=== PATIENT | male | born 1935 | race Caucasian/White ===

== ENCOUNTER 2016-04-24 09:25 | Outpatient (CLI) | payer MEDICARE, OTHER | END 2016-04-24 09:26 | disposition home or self-care (01) | DX: I13.0 Hypertensive heart and chronic kidney disease with heart failure and stage 1 through stage 4 chronic kidney disease, or unspecified chronic kidney disease (principal); I50.9 Heart failure, unspecified; N18.9 Chronic kidney disease, unspecified; E11.22 Type 2 diabetes mellitus with diabetic chronic kidney disease; E78.5 Hyperlipidemia, unspecified; Z79.899 Other long term (current) drug therapy; I25.10 Atherosclerotic heart disease of native coronary artery without angina pectoris ==

== ENCOUNTER 2016-09-15 12:15 | Outpatient (CLI) | payer MEDICARE, OTHER ==
--- NOTE | 2016-09-16 09:01 | XRAY Report ---
RIGHT FOOT, THREE VIEWS: 09/15/2016 CLINICAL HISTORY: Right mid foot pain lateral. FINDINGS: Prominent accessory ossicle is noted adjacent to the medial aspect of the tarsonavicular b one. Minimal bunion deformity is seen at the right first MT joint. Minimal narrowing of the proxima l and distal interphalangeal joints is seen. Bipartite accessory ossicle is noted adjacent to the la teral aspect of the cuboid bone. Moderate-sized posterior calcaneal spur with a small plantar calcaneal spur. IMPRESSION: 1. PROMINENT ACCESSORY OSSICLE IS NOTED ADJACENT TO THE MEDIAL ASPECT OF THE TARSONAVICULAR BONE. T HIS IS A NORMAL VARIATION. 2. BIPARTITE ACCESSORY OSSICLES ARE SEEN ADJACENT TO THE LATERAL ASPECT OF THE CUBOID BONE. THIS IS A NORMAL VARIATION. 3. MILD BUNION DEFORMITY OF THE RIGHT FIRST MT JOINT WITH ASSOCIATED MINIMAL OSTEOARTHRITIS. 4. MINIMAL OSTEOARTHRITIS IS SEEN IN THE PROXIMAL AND DISTAL INTERPHALANGEAL JOINTS OF THE SECOND TH ROUGH FIFTH TOES. 5. MODERATE-SIZED POSTERIOR CALCANEAL SPUR IS SEEN WITH A SMALL PLANTAR CALCANEAL SPUR. JOB #: [id number] EXT JOB #:[id number]
== END 2016-09-15 12:16 | disposition home or self-care (01) ==
LOC: DI 12:15
PROVIDERS: ATTEND Nurse Practitioner Primary Care
DX: M19.071 Primary osteoarthritis, right ankle and foot (principal); M21.611 Bunion of right foot; M77.31 Calcaneal spur, right foot

== ENCOUNTER 2016-10-20 08:00 | Outpatient (CLI) | payer MEDICARE, OTHER ==
[2016-10-20 20:47] LABS: HEMOGLOBIN A1C 1.05 g/dL
== END 2016-10-20 08:01 | disposition home or self-care (01) ==
LOC: LAB.R 08:00
PROVIDERS: ATTEND Nurse Practitioner Primary Care
DX: E11.9 Type 2 diabetes mellitus without complications (principal); Z79.4 Long term (current) use of insulin
CPT/HCPCS: 82947; 83036

== ENCOUNTER 2016-10-26 11:45 | Outpatient (CLI) | payer MEDICARE, OTHER | END 2016-10-26 11:46 | disposition home or self-care (01) | LOC: LAB.R 11:45 | PROVIDERS: ATTEND Internal Medicine | DX: M10.9 Gout, unspecified (principal) | CPT/HCPCS: 84550 ==

== ENCOUNTER 2017-05-05 09:25 | Outpatient (CLI) | payer MEDICARE, OTHER ==
[2017-05-05 13:08] LABS: ALBUMIN 3.7 g/dL (3.2-5.5); ALBUMIN/GLOBULIN RATIO 1.1 (1.0-2.2); ALKALINE PHOSPHATASE 72 IU/L (42-121); ALT ALANINE AMINOTRANSFERASE 34 IU/L (10-60); AST ASPARTATE AMINOTRANSFERASE 33 IU/L (10-42); BILIRUBIN,TOTAL 0.6 mg/dL (0.2-1.0); BUN - BLOOD UREA NITROGEN 55 mg/dL (6-20); CALCIUM 8.8 mg/dL (8.5-10.3); CARBON DIOXIDE - CO2 29 mmol/L (21-32); CHLORIDE 98 mmol/L (101-111); CHOL/HDL RATIO 2.5 (<5.0); CHOLESTEROL 98 mg/dL; CREATININE 2.2 mg/dL (0.6-1.2); GFR - MDRD 29 (>89); GLUCOSE 121 mg/dL (70-100); HDL CHOLESTEROL 39 mg/dL; LDL CHOLESTEROL,CALCULATED 33 mg/dL; LDL/HDL RATIO 0.8 (<3.6); SODIUM 141 mmol/L (135-145); VLDL CHOLESTEROL 26 mg/dL
[2017-05-05 13:09] LABS: BASOPHILS % (AUTO) 0.5 %; EOSINOPHILS # (AUTO) 0.3 10^3/uL (0.0-0.7); EOSINOPHILS % (AUTO) 4.5 %; HGB - HEMOGLOBIN 16.7 g/dL (14.0-18.0); LYMPHOCYTES # (AUTO) 1.8 10^3/uL (1.5-3.5); LYMPHOCYTES % (AUTO) 23.1 %; MEAN CORPUSCULAR HEMOGLOBIN 31.1 pg (27.0-31.0); MEAN CORPUSCULAR HGB CONC 33.5 g/dL (32.0-36.0); MEAN CORPUSCULAR VOLUME 92.8 fL (80.0-94.0); MEAN PLATELET VOLUME 10.9 fL (7.4-11.4); MONOCYTES # (AUTO) 1.1 10^3/uL (0.0-1.0); MONOCYTES % (AUTO) 13.9 %; NEUTROPHILS # (AUTO) 4.5 10^3/uL (1.5-6.6); PLT - PLATELET COUNT 113 10^3/uL (130-450); RED BLOOD COUNT 5.37 10^6/uL (4.70-6.10); RED CELL DISTRIBUTION WIDTH 13.9 % (12.0-15.0); WHITE BLOOD COUNT 7.8 x10^3/uL (4.8-10.8)
[2017-05-05 13:49] LABS: HB2 TOTAL 18.5 g/dL; HEMOGLOBIN A1C 1.11 g/dL; HEMOGLOBIN A1C % 7.6 % (4.6-6.2)
== END 2017-05-05 09:26 | disposition home or self-care (01) ==
LOC: LAB.R 09:25
PROVIDERS: ATTEND Nurse Practitioner Primary Care
DX: E11.22 Type 2 diabetes mellitus with diabetic chronic kidney disease (principal); I12.9 Hypertensive chronic kidney disease with stage 1 through stage 4 chronic kidney disease, or unspecified chronic kidney disease; N18.3 Chronic kidney disease, stage 3 (moderate); E03.9 Hypothyroidism, unspecified; J44.9 Chronic obstructive pulmonary disease, unspecified; E78.5 Hyperlipidemia, unspecified; I50.9 Heart failure, unspecified
CPT/HCPCS: 80053; 80061; 83036; 83721; 83880; 84443; 85025

== ENCOUNTER 2017-05-28 10:33 | Outpatient (CLI) | payer MEDICARE, OTHER ==
[2017-05-28 15:10] LABS: CREATININE 2.3 mg/dL (0.6-1.2)
== END 2017-05-28 10:34 | disposition home or self-care (01) ==
LOC: LAB.R 10:33
PROVIDERS: ATTEND Nurse Practitioner Primary Care
DX: I50.9 Heart failure, unspecified (principal); N18.4 Chronic kidney disease, stage 4 (severe); Z51.81 Encounter for therapeutic drug level monitoring; Z79.899 Other long term (current) drug therapy
CPT/HCPCS: 82565; 83880; 84520

== ENCOUNTER 2017-07-03 15:34 | Emergency (ER) | payer MEDICARE, OTHER ==
[2017-07-03 15:52] VITALS: BP 112/80
--- NOTE | 2017-07-03 16:39 | ED Physician Documentation ---
PD HPI HEENT - Stated complaint Stated Complaint: THROAT POSS OBJECT - Chief complaint Chief Complaint: Heent - History obtained from History obtained from: Patient - History of Present Illness Timing - onset: Other (He was swallowing his pills earlier today and feels like something is stuck, he points in the area of the left vallecula. He also ate some popcorn at the time.) Review of Systems Constitutional: reports: Reviewed and negative Nose: reports: Reviewed and negative Cardiac: reports: Reviewed and negative Respiratory: reports: Reviewed and negative PD PAST MEDICAL HISTORY - Past Medical History Past Medical History: Yes Cardiovascular: Congestive heart failure, Coronary artery disease, CT Respiratory: Asthma, COPD Neuro: Head injury Endocrine/Autoimmune: Type 2 diabetes GI: None : Renal insuffiency, Nocturia, Frequency HEENT: Chronic hearing loss, Other Psych: None Musculoskeletal: Osteoarthritis, Chronic back pain Derm: None - Past Surgical History Past Surgical History: Yes General: Colonoscopy Ortho: Other Cardiovascular: Coronary stent, Other HEENT: Cataracts Derm: Skin cancer surgery - Present Medications Home Medications: Ambulatory Orders Medication Instructions Recorded Confirmed Albuterol Sulfate [Albuterol 1 inh PO Q4HR PRN 07/16/14 07/22/15 Sulfate Hfa] Clopidogrel Bisulfate [Plavix] 75 mg PO DAILY 07/16/14 07/22/15 Levothyroxine [Synthroid] 25 mcg PO DAILY 07/16/14 07/22/15 Multivit with Calcium,Iron,Min 1 mg PO DAILY 07/16/14 07/22/15 [Essential Daily] Aspirin [Aspir-Low] 81 mg PO DAILY 06/24/15 07/22/15 Fluticasone/Salmeterol [Advair 1 puffs INH BID 06/24/15 07/22/15 250-50 Diskus] Simvastatin 20 mg PO QPM 06/24/15 07/22/15 Acetaminophen [Arthritis Pain 650 mg PO Q8HR PRN 06/25/15 06/25/15 Relief] Carvedilol [Coreg] 12.5 mg PO BID 06/25/15 07/22/15 Insulin Glargine [Lantus Solostar] 12 units SQ QPM 06/25/15 07/22/15 Isosorbide Dinitrate 10 mg PO TID 06/25/15 07/22/15 Potassium Chloride 40 meq PO DAILY 06/25/15 07/22/15 Spironolactone 25 mg PO DAILY 06/25/15 07/22/15 Torsemide [Demadex] 80 mg PO DAILY 06/25/15 07/22/15 hydrALAZINE [Apresoline] 10 mg PO TID 06/25/15 07/22/15 metOLazone [Metolazone] 2.5 mg PO ONCE 06/25/15 07/22/15 Potassium Chloride 20 meq ORAL QPM 07/22/15 07/22/15 Sevelamer [Renagel] 1,600 mg ORAL TID 07/22/15 07/22/15 Zolpidem [Ambien] 5 mg ORAL QPM 07/22/15 07/22/15 - Allergies Allergies/Adverse Reactions: Allergies Allergy/AdvReac Type Severity Reaction Status Date / Time Penicillins AdvReac Hives Verified 07/03/17 15:52 - Social History Does the pt smoke?: No Smoking Status: Never smoker Does the pt drink ETOH?: No Does the pt have substance abuse?: No - Immunizations Immunizations are current?: Yes - POLST Patient has POLST: Yes PD ED PE NORMAL - Vitals Vital signs reviewed: Yes - General General: Alert and oriented X 3, No acute distress - HEENT HEENT: Pharynx benign - Neck Neck: Supple, no meningeal sign, No bony TTP - Neuro Neuro: Alert and oriented X 3, Normal speech - Psych Psych: Normal mood, Normal affect Results - Vitals Vitals: Vital Signs - 24 hr 07/03/17 15:48 Temperature 35.9 C L Heart Rate 77 Respiratory 18 Rate Blood Pressure 112/80 O2 Saturation 93 Oxygen O2 Source Room air PD MEDICAL DECISION MAKING - ED course ED course: He has symptoms of a retained foreign body potentially in the left vallecula and no physical signing signs, he is tolerating his secretions and swallowing okay and there is no shortness of breath. I spoke with Dr. Robert Wilson, ENT in [place] who will see him on Wednesday if he is having persistent symptoms. Departure - Departure Disposition: Home, Self Care Clinical Impression: Foreign body in throat Qualifiers: Encounter type: initial encounter Qualified Code(s): T17.208A - Unspecified foreign body in pharynx causing other injury, initial encounter Condition: Good Record reviewed to determine appropriate education?: Yes Comments: If you are having persistent symptoms Wednesday morning, call Dr. Robert Wilson, I spoke with him today. He will be in [place], call [phone]. Do not eat or drink that morning if you are still having symptoms before you go see him.
== END 2017-07-03 16:58 | disposition home or self-care (01) ==
LOC: ED 15:34
DX: T17.208A Unspecified foreign body in pharynx causing other injury, initial encounter (principal); X58.XXXA Exposure to other specified factors, initial encounter; I50.9 Heart failure, unspecified; I25.10 Atherosclerotic heart disease of native coronary artery without angina pectoris; I25.2 Old myocardial infarction; J44.9 Chronic obstructive pulmonary disease, unspecified; E11.9 Type 2 diabetes mellitus without complications; Z79.4 Long term (current) use of insulin; M19.90 Unspecified osteoarthritis, unspecified site; Z79.82 Long term (current) use of aspirin
CPT/HCPCS: 99282

== ENCOUNTER 2017-08-31 11:38 | Outpatient (CLI) | payer MEDICARE, OTHER ==
--- NOTE | 2017-08-31 13:04 | XRAY Report ---
CHEST, TWO VIEWS: 08/31/2017 HISTORY: Short of breath. COMPARISON: 10/11/2016. FINDINGS: Cardiomegaly with pulmonary vascular redistribution and congestion. Small left greater than right effusions. Nonspecific increase in interstitial markings throughout both lungs, similar to previous. There is degenerative change in the spine. IMPRESSION: CARDIOMEGALY, LEFT GREATER THAN RIGHT EFFUSIONS AND PULMONARY VASCULAR CONGESTION, SIMILAR TO PREVIOUS. FINDINGS SUGGEST FLUID OVERLOAD/CONGESTIVE FAILURE. FINDINGS MAY BE ACUTE OR CHRONIC. TD: 08/31/2017 12:26
== END 2017-08-31 11:39 | disposition home or self-care (01) ==
LOC: DI 11:38
PROVIDERS: ATTEND Nurse Practitioner Primary Care
DX: I50.9 Heart failure, unspecified (principal); I51.7 Cardiomegaly; J44.9 Chronic obstructive pulmonary disease, unspecified
CPT/HCPCS: 71046

== ENCOUNTER 2017-10-17 23:56 | Emergency (ER) | payer MEDICARE, OTHER ==
--- NOTE | 2017-10-18 00:10 | ED Physician Documentation ---
History of Present Illness - Stated complaint Stated Complaint: RT FOOT GOUT ATTACK - Chief complaint Chief Complaint: General - History obtained from History obtained from: Patient, Family - Additonal information Additional information: 82-year-old male presents to the emergency department with complaints of right great toe pain which started earlier. The patient has a history of recurrent gout and today's pain is similar to prior episodes. The patient took 1 baby aspirin with no significant improvement. No other attempts at symptom management. The patient denies toe swelling, redness, foot swelling or leg swelling. Symptoms are described as moderate. The patient has a history of pulmonary related issues and was told that he needed oxygen but is refused to go on oxygen. Currently, the patient is denying any shortness of breath that is new or different. No fevers, URI symptoms, chest pain or abdominal pain. Review of Systems Constitutional: denies: Fever, Chills Eyes: denies: Discharge Ears: denies: Ear pain Nose: denies: Congestion Cardiac: denies: Chest pain / pressure Respiratory: denies: Dyspnea Skin: denies: Rash, Laceration (s) Musculoskeletal: reports: Joint pain. denies: Neck pain Neurologic: denies: Generalized weakness, Headache PD PAST MEDICAL HISTORY - Past Medical History Cardiovascular: Congestive heart failure, Coronary artery disease, [place] Respiratory: Asthma, COPD Endocrine/Autoimmune: Type 2 diabetes GI: None : Renal insuffiency, Nocturia, Frequency HEENT: Chronic hearing loss, Other Psych: None Musculoskeletal: Osteoarthritis, Chronic back pain Derm: None - Past Surgical History Past Surgical History: Yes General: Colonoscopy Ortho: Other Cardiovascular: Coronary stent, Other HEENT: Cataracts Derm: Skin cancer surgery - Present Medications Home Medications: Ambulatory Orders Medication Instructions Recorded Confirmed Albuterol Sulfate [Albuterol 1 inh PO Q4HR PRN 07/16/14 07/22/15 Sulfate Hfa] Clopidogrel Bisulfate [Plavix] 75 mg PO DAILY 07/16/14 07/22/15 Levothyroxine [Synthroid] 25 mcg PO DAILY 07/16/14 07/22/15 Multivit with Calcium,Iron,Min 1 mg PO DAILY 07/16/14 07/22/15 [Essential Daily] Aspirin [Aspir-Low] 81 mg PO DAILY 06/24/15 07/22/15 Fluticasone/Salmeterol [Advair 1 puffs INH BID 06/24/15 07/22/15 250-50 Diskus] Simvastatin 20 mg PO QPM 06/24/15 07/22/15 Acetaminophen [Arthritis Pain 650 mg PO Q8HR PRN 06/25/15 06/25/15 Relief] Carvedilol [Coreg] 12.5 mg PO BID 06/25/15 07/22/15 Insulin Glargine [Lantus Solostar] 12 units SQ QPM 06/25/15 07/22/15 Isosorbide Dinitrate 10 mg PO TID 06/25/15 07/22/15 Potassium Chloride 40 meq PO DAILY 06/25/15 07/22/15 Spironolactone 25 mg PO DAILY 06/25/15 07/22/15 Torsemide [Demadex] 80 mg PO DAILY 06/25/15 07/22/15 hydrALAZINE [Apresoline] 10 mg PO TID 06/25/15 07/22/15 metOLazone [Metolazone] 2.5 mg PO ONCE 06/25/15 07/22/15 Potassium Chloride 20 meq ORAL QPM 07/22/15 07/22/15 Sevelamer [Renagel] 1,600 mg ORAL TID 07/22/15 07/22/15 Zolpidem [Ambien] 5 mg ORAL QPM 07/22/15 07/22/15 predniSONE [Prednisone] 60 mg PO DAILY #12 tablet 10/18/17 - Allergies Allergies/Adverse Reactions: Allergies Allergy/AdvReac Type Severity Reaction Status Date / Time Penicillins AdvReac Hives Verified 10/18/17 00:00 - Social History Does the pt smoke?: No Smoking Status: Never smoker Does the pt drink ETOH?: No Does the pt have substance abuse?: No - Immunizations Immunizations are current?: Yes - POLST Patient has POLST: Yes PD ED PE NORMAL - General General: Alert and oriented X 3, No acute distress - HEENT HEENT: Atraumatic, PERRL, EOMI, Ears normal - Neck Neck: Supple, no meningeal sign - Cardiac Cardiac: RRR, Strong equal pulses - Respiratory Respiratory: No respiratory distress - Derm Derm: Normal color - Extremities Extremities: No deformity, Other (The patient has tenderness to palpation of the right great toe, there is normal range of motion, there is no erythematous changes or swelling. The patient's foot is within normal limits, there is no erythema or signs of cellulitis or swelling. The lower extremity has chronic venous stasis changes but no acute changes.) - Neuro Neuro: Alert and oriented X 3, Normal speech - Psych Psych: Normal mood Results - Vitals Vitals: Vital Signs - 24 hr 10/18/17 10/18/17 10/18/17 00:00 00:18 00:32 Temperature 36.5 C Heart Rate 79 70 Respiratory 18 18 Rate Blood Pressure 110/87 H 135/84 H O2 Saturation 88 L 96 90 L Oxygen O2 Source Nasal cannula Oxygen Flow Rate 2 PD MEDICAL DECISION MAKING - ED course ED course: The patient is requesting medications to help manage his typical gout flare. On physical exam of the foot and lower extremity there is no evidence of an acute joint infection, there is no swelling or redness of the joint. The patient is quite tender to palpation and states this is how his gout starts. The patient normally receives prednisone which helps his acute symptoms. The patient did have a low oxygen saturation upon arriving the emergency department. The patient has chronic disease and is denying any acute symptoms. The patient is supposed to be on oxygen but has not followed through. Presently there does not appear to be any acute issue related to his breathing and no further workup is required at this time in the emergency department. The patient appears appropriate for discharge and ongoing outpatient management. I discussed warning signs and recommended returning to the emergency department immediately for worsening or any concerns - Sepsis Event Vital Signs: Vital Signs - 24 hr 10/18/17 10/18/17 10/18/17 00:00 00:18 00:32 Temperature 36.5 C Heart Rate 79 70 Respiratory 18 18 Rate Blood Pressure 110/87 H 135/84 H O2 Saturation 88 L 96 90 L Oxygen O2 Source Nasal cannula Oxygen Flow Rate 2 Departure - Departure Disposition: 01 Home, Self Care Clinical Impression: Toe pain Qualifiers: Laterality: right Qualified Code(s): M79.674 - Pain in right toe(s) Condition: Good Instructions: Gout Attack Tx Follow-Up: David Lucero ARNP [Primary Care Provider] - Prescriptions: predniSONE [Prednisone] 60 mg PO DAILY #12 tablet Comments: Please return to the ED for worsening symptoms or any concerns Discharge Date/Time: 10/18/17 00:32
[2017-10-18] MEDS: ACETAMINOPHEN 500 MG TABLET PO STA (00:24)
[2017-10-18] MEDS: predniSONE 20 MG TABLET PO STA (00:24)
[2017-10-18 00:33] VITALS: BP 135/84
== END 2017-10-18 00:32 | disposition home or self-care (01) ==
LOC: ED 23:56
DX: M79.674 Pain in right toe(s) (principal); I87.8 Other specified disorders of veins; M19.90 Unspecified osteoarthritis, unspecified site; J44.9 Chronic obstructive pulmonary disease, unspecified; E11.9 Type 2 diabetes mellitus without complications; Z79.4 Long term (current) use of insulin; I25.10 Atherosclerotic heart disease of native coronary artery without angina pectoris; Z79.02 Long term (current) use of antithrombotics/antiplatelets; Z79.82 Long term (current) use of aspirin
CPT/HCPCS: 99283; A9270; J7512

== ENCOUNTER 2017-10-28 17:55 | Emergency (ER) | payer MEDICARE, OTHER ==
[2017-10-28] MEDS ORDERED: HYDROmorphone 2 MG/ML VIAL IM STA (18:18)
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
--- NOTE | 2017-10-28 19:27 | CT Report ---
Procedure Date: 10/28/2017 Accession Number: [id number] / [id number] Procedure: CT - Lumbar Spine W/O CPT Code: FULL RESULT: EXAM: CT LUMBAR SPINE WITHOUT CONTRAST EXAM DATE: 10/28/2017 06:56 PM. CLINICAL HISTORY: Back pain. COMPARISONS: X-ray L-spine 07/01/2006 9:59 AM. TECHNIQUE: Thin-section axial images were acquired of the lumbar spine from T12 to S1 without contrast. Post-processing: Coronal and sagittal reformats. Other: None. In accordance with CT protocol optimization, one or more of the following dose reduction techniques were utilized for this exam: automated exposure control, adjustment of mA and/or KV based on patient size, or use of iterative reconstructive technique. FINDINGS: Alignment: There is 7 mm of L5 on S1 anterolisthesis. Bones: Five [id number] lumbar vertebral bodies are present. Chronic fracture defect involving the posterior inferior L2 endplate. No acute fracture seen. Disk Levels/Facets: T12-L1: Unremarkable. L1-L2: Unremarkable. L2-L3: Bulging disk osteophyte complex with posterior inferior endplate chronic fracture fragment resulting in moderate central and bilateral neural foraminal canal stenosis. L3-L4: Degenerative bulging disk osteophyte complex resulting in mild bilateral neural foraminal stenosis. L4-L5: Facet joint arthropathy with L5 anterolisthesis and bulging disk osteophyte complex resulting in mild bilateral neural foraminal stenosis. L5-S1: Grade 1 L5 on S1 anterolisthesis. There are bilateral pars inter-articularis defect and facet joint arthropathy resulting in mild to moderate left greater than right bilateral neural foraminal stenosis. Musculature: Normal. No fatty atrophy. Other: Diverticulosis of the visualized colon. Atherosclerotic aorta. Bilateral renal vascular calcifications noted. Benign-appearing right renal cyst noted. IMPRESSION: 1. No acute lumbar spine fracture. 2. Chronic L2 posterior inferior endplate fracture. 3. Multilevel disk and facet joint related degenerative changes resulting in foraminal stenosis as detailed above most significant at L3-L4, L4-L5 and L5-S1. 4. L5 on S1 grade 1 anterolisthesis. RADIA
[2017-10-28] MEDS ORDERED: HYDROmorphone 2 MG/ML VIAL IVP STA (19:32)
[2017-10-28 19:38] LABS: BASOPHILS # (AUTO) 0.1 10^3/uL (0.0-0.1); BASOPHILS % (AUTO) 0.7 %; EOSINOPHILS # (AUTO) 0.3 10^3/uL (0.0-0.7); HGB - HEMOGLOBIN 17.2 g/dL (14.0-18.0); LYMPHOCYTES # (AUTO) 1.4 10^3/uL (1.5-3.5); LYMPHOCYTES % (AUTO) 15.3 %; MEAN CORPUSCULAR HEMOGLOBIN 29.5 pg (27.0-31.0); MEAN CORPUSCULAR HGB CONC 32.4 g/dL (32.0-36.0); MEAN CORPUSCULAR VOLUME 90.9 fL (80.0-94.0); MONOCYTES # (AUTO) 1.2 10^3/uL (0.0-1.0); MONOCYTES % (AUTO) 12.6 %; NEUTROPHILS # (AUTO) 6.3 10^3/uL (1.5-6.6); NEUTROPHILS % (AUTO) 68.4 %; PLT - PLATELET COUNT 119 10^3/uL (130-450); RED BLOOD COUNT 5.84 10^6/uL (4.70-6.10); RED CELL DISTRIBUTION WIDTH 15.8 % (12.0-15.0); WHITE BLOOD COUNT 9.2 x10^3/uL (4.8-10.8)
[2017-10-28 19:50] VITALS: BP 117/93
[2017-10-28 19:51] LABS: ALBUMIN 3.2 g/dL (3.2-5.5); BILIRUBIN,TOTAL 1.2 mg/dL (0.2-1.0); CALCIUM 8.5 mg/dL (8.5-10.3); CREATININE 2.3 mg/dL (0.6-1.2); TOTAL PROTEIN 6.4 g/dL (6.7-8.2)
[2017-10-28] MEDS ORDERED: HYDROcod/ACET 5/325 Prepack 4 PO STA (20:14)
== END 2017-10-28 20:19 | disposition home or self-care (01) ==
LOC: ED 17:55
DX: M54.5 Low back pain (principal); I95.2 Hypotension due to drugs; I25.10 Atherosclerotic heart disease of native coronary artery without angina pectoris; I25.2 Old myocardial infarction; E11.9 Type 2 diabetes mellitus without complications; Z95.5 Presence of coronary angioplasty implant and graft; Z79.82 Long term (current) use of aspirin
CPT/HCPCS: 36415; 72131; 80053; 83690; 85025; 96374; 99283; 99284; J1170

== ENCOUNTER 2017-11-02 08:00 | Outpatient (CLI) | payer MEDICARE, OTHER ==
[2017-11-02 11:55] LABS: BILIRUBIN,TOTAL 0.8 mg/dL (0.2-1.0); CALCIUM 8.3 mg/dL (8.5-10.3); CREATININE 1.8 mg/dL (0.6-1.2)
== END 2017-11-02 08:01 ==
LOC: LAB.R 08:00
PROVIDERS: ATTEND Nurse Practitioner Primary Care
DX: I50.9 Heart failure, unspecified (principal)
CPT/HCPCS: 80053; 83880

== ENCOUNTER 2017-11-05 10:22 | Outpatient (CLI) | payer MEDICARE, OTHER ==
[2017-11-05 10:49] LABS: HB2 TOTAL 17.3 g/dL; HEMOGLOBIN A1C 0.88 g/dL; HEMOGLOBIN A1C % 6.8 % (4.6-6.2)
[2017-11-05 10:50] LABS: CALCIUM 8.7 mg/dL (8.5-10.3); CREATININE 1.8 mg/dL (0.6-1.2)
== END 2017-11-05 10:23 | disposition home or self-care (01) ==
LOC: LAB.R 10:22
PROVIDERS: ATTEND Internal Medicine
DX: I50.9 Heart failure, unspecified (principal); E11.9 Type 2 diabetes mellitus without complications
CPT/HCPCS: 80048; 83036; 83880

== ENCOUNTER 2017-11-09 10:46 | Outpatient (CLI) | payer MEDICARE, OTHER | END 2017-11-09 10:47 | disposition home or self-care (01) | LOC: LAB.R 10:46 | PROVIDERS: ATTEND Nurse Practitioner Primary Care | DX: I50.9 Heart failure, unspecified (principal) | CPT/HCPCS: 83880 ==

== ENCOUNTER 2017-11-15 09:24 | Outpatient (CLI) | payer MEDICARE, OTHER ==
[2017-11-15] MEDS ORDERED: ALBUTEROL NEB 2.5 MG/3 ML INH PRN (13:25)
== END 2017-11-15 09:25 | disposition home or self-care (01) ==
LOC: RT 09:24
PROVIDERS: ATTEND Nurse Practitioner Primary Care
DX: J44.9 Chronic obstructive pulmonary disease, unspecified (principal)
CPT/HCPCS: 94060; 94664; 94729; 94761

== ENCOUNTER 2018-02-16 14:41 | Emergency (ER) | payer MEDICARE, OTHER ==
--- NOTE | 2018-02-16 14:53 | ED Physician Documentation ---
PD HPI FOCAL NEURO - Stated complaint Stated Complaint: DIZZY,SLURRED SPEACH - History obtained from History obtained from: Patient - History of Present Illness Timing - onset: How many minutes ago (20-30) Timing - duration: Minutes Timing - details: Gradual onset (He was feeling a little bit lightheaded this morning. He was out running errands with his daughter he was intermittently off of his oxygen and had not had lunch as yet apparently. He was sitting in the car and felt lightheaded and then felt as though he might pass out. He did not have any vertigo per se. He denied any headache or chest pain or abdominal pain. He asked his daughter to drive him here.) Severity of deficit: Moderate Weakness: Other (generally). No: Face Numbness: No: Face, Arm, Leg Associated symptoms: Other (lightheaded). No: Headache, Nausea / vomiting, Chest pain Contributing factors: positive: Other (CAD and PVD, and is on BP meds. Also history of COPD.) Baseline status: positive: A&OX3, ambulatory, indep Similar symptoms before: Has not had sx before Review of Systems Constitutional: denies: Fever, Chills, Myalgias Nose: denies: Rhinorrhea / runny nose, Congestion Throat: denies: Sore throat Cardiac: reports: Pedal edema. denies: Chest pain / pressure, Palpitations, Calf pain Respiratory: reports: Dyspnea, Wheezing. denies: Cough GI: denies: Abdominal Pain, Nausea, Vomiting, Diarrhea : denies: Dysuria Musculoskeletal: denies: Neck pain, Back pain Neurologic: reports: Generalized weakness, Near syncope. denies: Focal weakness, Numbness, Syncope, Altered mental status, Headache, Head injury Endocrine: reports: Easy bruising / bleeding PD PAST MEDICAL HISTORY - Past Medical History Cardiovascular: Congestive heart failure, Coronary artery disease, [place] Respiratory: Asthma, COPD Endocrine/Autoimmune: Type 2 diabetes GI: None : Renal insuffiency, Nocturia, Frequency HEENT: Chronic hearing loss, Other Psych: None Musculoskeletal: Osteoarthritis, Chronic back pain Derm: None - Past Surgical History Past Surgical History: Yes General: Colonoscopy Ortho: Other Cardiovascular: Coronary stent, Other HEENT: Cataracts Derm: Skin cancer surgery - Present Medications Home Medications: Ambulatory Orders Medication Instructions Recorded Confirmed Albuterol Sulfate [Albuterol 1 inh PO Q4HR PRN 07/16/14 07/22/15 Sulfate Hfa] Clopidogrel Bisulfate [Plavix] 75 mg PO DAILY 07/16/14 07/22/15 Levothyroxine [Synthroid] 25 mcg PO DAILY 07/16/14 07/22/15 Multivit with Calcium,Iron,Min 1 mg PO DAILY 07/16/14 07/22/15 [Essential Daily] Aspirin [Aspir-Low] 81 mg PO DAILY 06/24/15 07/22/15 Fluticasone/Salmeterol [Advair 1 puffs INH BID 06/24/15 07/22/15 250-50 Diskus] Acetaminophen [Arthritis Pain 650 mg PO Q8HR PRN 06/25/15 06/25/15 Relief] Carvedilol [Coreg] 12.5 mg PO BID 06/25/15 07/22/15 Insulin Glargine [Lantus Solostar] 12 units SQ QPM 06/25/15 07/22/15 Isosorbide Dinitrate 10 mg PO TID 06/25/15 07/22/15 Torsemide [Demadex] 80 mg PO DAILY 06/25/15 07/22/15 hydrALAZINE [Apresoline] 10 mg PO TID 06/25/15 07/22/15 Sevelamer [Renagel] 1,600 mg ORAL TID 07/22/15 07/22/15 Zolpidem [Ambien] 5 mg ORAL QPM 07/22/15 07/22/15 HYDROcod/ACETAM 5/325 [[place] 5/325] 1 - 2 ea PO Q6H PRN #15 tablet 10/28/17 - Allergies Allergies/Adverse Reactions: Allergies Allergy/AdvReac Type Severity Reaction Status Date / Time Penicillins AdvReac Hives Verified 10/28/17 18:06 - Social History Does the pt smoke?: No Smoking Status: Never smoker Does the pt drink ETOH?: No Does the pt have substance abuse?: No - Immunizations Immunizations are current?: Yes - POLST Patient has POLST: Yes PD ED PE NORMAL - Vitals Vital signs reviewed: Yes (Low bp at 88 systolic. Sats 85% on his 2 lpm NC. ) - General General: Alert and oriented X 3, Well developed/nourished - HEENT HEENT: Pharynx benign - Neck Neck: Supple, no meningeal sign, No adenopathy - Cardiac Cardiac: RRR, No murmur - Respiratory Respiratory: No: Clear bilaterally (diffuse wheezing without retractions. No coarse sounds. Mild fine crackles at bases. ) - Abdomen Abdomen: Soft, Non tender - Derm Derm: Warm and dry. No: Normal color (mild dusky appearance on initial presentation, improves in few minutes once here. ) - Extremities Extremities: No tenderness to palpate, Normal ROM s pain, No calf tenderness / cord, Other (mild edema only in both legs. ) - Neuro Neuro: Alert and oriented X 3, e commerce strategist 2-12 intact, No motor deficit, No sensory deficit, Normal speech Eye Opening: Spontaneous Motor: Obeys Commands Verbal: Oriented GCS Score: 15 Results - Vitals Vitals: Vital Signs - 24 hr 02/16/18 02/16/18 02/16/18 14:47 14:49 14:52 Temperature 36.5 C Heart Rate 80 80 75 Respiratory 18 Rate Blood Pressure 88/59 L 96/76 88/59 L O2 Saturation 85 L 02/16/18 02/16/18 02/16/18 15:30 15:32 15:50 Temperature Heart Rate 80 85 85 Respiratory 22 19 18 Rate Blood Pressure 124/53 L 120/56 L O2 Saturation 02/16/18 17:49 Temperature 36.5 C Heart Rate 81 Respiratory 19 Rate Blood Pressure 128/104 H O2 Saturation 94 Oxygen O2 Source Nasal cannula Oxygen Flow Rate 2 - EKG (time done) 14:56 Rate: Rate (enter#) (90) Rhythm: NSR [place]: LAD Intervals: RBBB Ischemia: Non specific changes Compare to prior EKG: Old EKG unavailable - Labs Labs: Laboratory Tests 02/16/18 02/16/18 02/16/18 15:00 15:00 15:00 WBC 7.0 RBC 5.04 Hgb 14.7 Hct 46.6 MCV 92.4 MCH 29.1 MCHC 31.5 L RDW 15.6 H Plt Count 159 MPV 10.0 Neut # (Auto) 4.6 Lymph # (Auto) 1.2 L [place] # (Auto) 0.9 Eos # (Auto) 0.3 Baso # (Auto) 0.0 Absolute Nucleated RBC 0.00 Nucleated RBC % 0.1 Sodium 142 Potassium 4.1 Chloride 97 L Carbon Dioxide 34 H Anion Gap 11.0 BUN 37 H Creatinine 1.9 H Estimated GFR (MDRD) 34 L Glucose 146 H Lactic Acid Calcium 8.6 Magnesium 2.5 Total Bilirubin 1.1 H AST 39 ALT 22 Alkaline Phosphatase 119 Troponin I 0.04 B-Natriuretic Peptide Total Protein 6.6 L Albumin 3.5 Globulin 3.1 Albumin/Globulin Ratio 1.1 Lipase 37 Urine Color Urine Clarity Urine pH Ur Specific [place] Urine Protein Urine Glucose (UA) Urine Ketones Urine Occult Blood Urine Nitrite Urine Bilirubin Urine Urobilinogen Ur Leukocyte Esterase Urine RBC Urine WBC Ur Squamous Epith Cells Urine Bacteria Urine Casts Ur Microscopic Review Urine Culture Comments 02/16/18 02/16/18 02/16/18 15:00 15:45 17:11 WBC RBC Hgb Hct MCV MCH MCHC RDW Plt Count MPV Neut # (Auto) Lymph # (Auto) [place] # (Auto) Eos # (Auto) Baso # (Auto) Absolute Nucleated RBC Nucleated RBC % Sodium Potassium Chloride Carbon Dioxide Anion Gap BUN Creatinine Estimated GFR (MDRD) Glucose Lactic Acid 1.4 Calcium Magnesium Total Bilirubin AST ALT Alkaline Phosphatase Troponin I B-Natriuretic Peptide 927 H Total Protein Albumin Globulin Albumin/Globulin Ratio Lipase Urine Color YELLOW Urine Clarity CLEAR Urine pH 6.0 Ur Specific [place] 1.025 Urine Protein >=300 Urine Glucose (UA) NEGATIVE Urine Ketones NEGATIVE Urine Occult Blood NEGATIVE Urine Nitrite NEGATIVE Urine Bilirubin NEGATIVE Urine Urobilinogen 0.2 (NORMAL) Ur Leukocyte Esterase NEGATIVE Urine RBC 0-5 Urine WBC 0-3 Ur Squamous Epith Cells RARE Squamous Urine Bacteria None Seen Urine Casts 11-25 Hyaline Casts Ur Microscopic Review INDICATED Urine Culture Comments NOT INDICATED - Rads (name of study) chest xray Radiology: Prelim report reviewed (interstitial congestion c/w CHF. No infiltrates. ), EMP read contemporaneously PD MEDICAL DECISION MAKING - ED course Complexity details: re-evaluated patient (He is feeling considerably improved improved with slight fluid bolus and albuterol nebulizer treatment. His blood pressure is adequate and his oxygen level is good. His color is improved and he is alert and talkative. Lab testing here did not show any acute abnormality. He had not had much to eat or drink this morning and had been out doing running errands. He had been off his home oxygen for a couple of hours intermittently. He is feeling much improved and wants to go home. I do not see any indicators to say just that he requires hospitalization. His daughters and here are all comfortable and prefer going home as he is doing well. He has albuterol inhaler at home and he should use that regularly for the next few days presuming some exacerbation of his COPD. His chest x-ray does suggest some increased edema and so he can increase his diuretic over the next 2-3 days as well. Return if symptoms again), considered differential (Consider heart rhythm issues or heart attack as well as electrolyte problems or sepsis. He is having some wheezing and lower oxygen as well as a drop in his blood pressure. He does not have any focal weakness.), d/w patient, d/w family Departure - Departure Disposition: Home, Self Care Clinical Impression: Transient hypotension, Near syncope, Wheezing, COPD exacerbation CHF exacerbation Qualifiers: Heart failure type: unspecified Qualified Code(s): I50.9 - Heart failure, unspecified Condition: Stable Record reviewed to determine appropriate education?: Yes Instructions: ED Hypotension All Causes Follow-Up: Coty Serrano MD [Primary Care Provider] - Comments: You look better now. There is no indications of serious causes for your blood pressure to have gone down transiently. No signs of heart attack, sepsis, significant electrolyte abnormalities or such. You did have wheezing and low oxygen and that may have contributed. You seemed to be improved now. I would suggest using your albuterol inhaler with spacer 2-3 puffs 4 times a day for the next 2-3 days and then back to as needed. Recheck if not sustained improved over the next couple of days. Continue your other usual medications.
[2018-02-16] MEDS ORDERED: ALBUTEROL NEB 2.5 MG/3 ML INH STA (15:29)
[2018-02-16] MEDS ORDERED: SODIUM CHLORIDE 0.9% 250 ML IV ONE (15:30)
--- NOTE | 2018-02-16 15:54 | XRAY Report ---
Reason: chest pain Procedure Date: 02/16/2018 Accession Number: [id number] / [id number] Procedure: XR - Chest 1 View X-Ray CPT Code: 17244 FULL RESULT: EXAM: CHEST RADIOGRAPHY EXAM DATE: 02/16/2018 03:41 PM. CLINICAL HISTORY: Chest pain. COMPARISON: CXR 2V 02/21/2007 1:06 PM. TECHNIQUE: 1 view. FINDINGS: Apparent interval widening of the cardiomediastinal silhouette may be due to AP technique. There is prominence of the interstitial pulmonary markings in conjunction with increased perihilar markings consistent with pulmonary edema and elevation of the left hemidiaphragm which is chronic. There is likely a small left pleural effusion as well as left basilar airspace opacities. There is no pneumothorax. IMPRESSION: Interval development of pulmonary edema. Left basilar opacities may represent a combination of atelectasis or airspace disease and pleural effusion. RADIA
[2018-02-16] MEDS ORDERED: BUMETANIDE 1 MG/4 ML VIAL IVP STA ×2 (15:56→16:46)
[2018-02-16 16:02] LABS: BASOPHILS % (AUTO) 0.6 %; EOSINOPHILS # (AUTO) 0.3 10^3/uL (0.0-0.7); EOSINOPHILS % (AUTO) 3.6 %; HGB - HEMOGLOBIN 14.7 g/dL (14.0-18.0); LYMPHOCYTES # (AUTO) 1.2 10^3/uL (1.5-3.5); LYMPHOCYTES % (AUTO) 17.3 %; MEAN CORPUSCULAR HEMOGLOBIN 29.1 pg (27.0-31.0); MEAN CORPUSCULAR HGB CONC 31.5 g/dL (32.0-36.0); MEAN CORPUSCULAR VOLUME 92.4 fL (80.0-94.0); MONOCYTES # (AUTO) 0.9 10^3/uL (0.0-1.0); MONOCYTES % (AUTO) 12.9 %; NEUTROPHILS # (AUTO) 4.6 10^3/uL (1.5-6.6); NEUTROPHILS % (AUTO) 65.6 %; PLT - PLATELET COUNT 159 10^3/uL (130-450); RED BLOOD COUNT 5.04 10^6/uL (4.70-6.10); RED CELL DISTRIBUTION WIDTH 15.6 % (12.0-15.0)
[2018-02-16 16:20] LABS: ALBUMIN 3.5 g/dL (3.2-5.5); ALBUMIN/GLOBULIN RATIO 1.1 (1.0-2.2); BILIRUBIN,TOTAL 1.1 mg/dL (0.2-1.0); CALCIUM 8.6 mg/dL (8.5-10.3); CREATININE 1.9 mg/dL (0.6-1.2); MAGNESIUM 2.5 mg/dL (1.7-2.8); TOTAL PROTEIN 6.6 g/dL (6.7-8.2)
[2018-02-16 17:50] VITALS: BP 128/104
[2018-02-16 18:00] LABS: BILIRUBIN,URINE NEGATIVE (NEGATIVE); GLUCOSE, URINE (UA) NEGATIVE (NEGATIVE); KETONES,URINE (UA) NEGATIVE (NEGATIVE); LEUKOCYTE ESTERASE, URINE NEGATIVE (NEGATIVE); NITRITE,URINE NEGATIVE (NEGATIVE); OCCULT BLOOD,URINE NEGATIVE (NEGATIVE); PROTEIN,URINE >=300 mg/dL (NEGATIVE); UROBILINOGEN,URINE 0.2 (NORMAL) E.U./dL (NORMAL)
[2018-02-16 18:14] LABS: CLARITY,URINE CLEAR (CLEAR)
[2018-02-16 18:15] LABS: BACTERIA,URINE None Seen /HPF (None Seen); CASTS, URINE 11-25 Hyaline Casts /LPF; RBC,URINE 0-5 /HPF (0-5); SQUAMOUS EPITHELIAL CELL,UR RARE Squamous (<= Few)
== END 2018-02-16 18:00 | disposition home or self-care (01) ==
LOC: ED 14:41
DX: I95.9 Hypotension, unspecified (principal); R55 Syncope and collapse; J44.1 Chronic obstructive pulmonary disease with (acute) exacerbation; I50.9 Heart failure, unspecified; I45.10 Unspecified right bundle-branch block; I25.2 Old myocardial infarction; I25.10 Atherosclerotic heart disease of native coronary artery without angina pectoris; Z95.5 Presence of coronary angioplasty implant and graft
CPT/HCPCS: 36415; 71045; 80053; 81001; 81003; 83605; 83690; 83735; 83880; 84484; 85025; 87086; 93005; 94640; 96374; 99284

== ENCOUNTER 2018-02-21 22:13 | Emergency (ER) | payer MEDICARE, OTHER ==
--- NOTE | 2018-02-21 23:41 | ED Physician Documentation ---
History of Present Illness - Stated complaint Stated Complaint: BILAT THIGH SWELLING - Chief complaint Chief Complaint: General - History obtained from History obtained from: Patient - History of Present Illness Timing: Today Pain level now: 0 Improved by: no ameliorating factors Worsened by: no exacerbating factors - Additonal information Additional information: c/o bilateral medial upper thigh swelling that he noticed earlier this afternoon. he says this is new for him and he is mostly concerned as to what might be causing it rather than controlling the symptoms: denies pain (both where the swelling is as well as any chest pain or discomfort), denies dyspnea. He has chronic BLE edema for which he wears pressure stockings. Review of Systems Constitutional: denies: Fever Cardiac: reports: Pedal edema. denies: Chest pain / pressure, Palpitations Respiratory: denies: Dyspnea GI: denies: Abdominal Pain Musculoskeletal: reports: Extremity swelling. denies: Extremity pain PD PAST MEDICAL HISTORY - Past Medical History Cardiovascular: Congestive heart failure, Coronary artery disease, [place] Respiratory: Asthma, COPD Endocrine/Autoimmune: Type 2 diabetes GI: None : Renal insuffiency, Nocturia, Frequency HEENT: Chronic hearing loss, Other Psych: None Musculoskeletal: Osteoarthritis, Chronic back pain Derm: None - Past Surgical History Past Surgical History: Yes General: Colonoscopy Ortho: Other Cardiovascular: Coronary stent, Other HEENT: Cataracts Derm: Skin cancer surgery - Present Medications Home Medications: Ambulatory Orders Medication Instructions Recorded Confirmed Albuterol Sulfate [Albuterol 1 inh PO Q4HR PRN 07/16/14 07/22/15 Sulfate Hfa] Clopidogrel Bisulfate [Plavix] 75 mg PO DAILY 07/16/14 07/22/15 Levothyroxine [Synthroid] 25 mcg PO DAILY 07/16/14 07/22/15 Multivit with Calcium,Iron,Min 1 mg PO DAILY 07/16/14 07/22/15 [Essential Daily] Aspirin [Aspir-Low] 81 mg PO DAILY 06/24/15 07/22/15 Fluticasone/Salmeterol [Advair 1 puffs INH BID 06/24/15 07/22/15 250-50 Diskus] Acetaminophen [Arthritis Pain 650 mg PO Q8HR PRN 06/25/15 06/25/15 Relief] Carvedilol [Coreg] 12.5 mg PO BID 06/25/15 07/22/15 Insulin Glargine [Lantus Solostar] 12 units SQ QPM 06/25/15 07/22/15 Isosorbide Dinitrate 10 mg PO TID 06/25/15 07/22/15 Torsemide [Demadex] 80 mg PO DAILY 06/25/15 07/22/15 hydrALAZINE [Apresoline] 10 mg PO TID 06/25/15 07/22/15 Sevelamer [Renagel] 1,600 mg ORAL TID 07/22/15 07/22/15 Zolpidem [Ambien] 5 mg ORAL QPM 07/22/15 07/22/15 HYDROcod/ACETAM 5/325 [[place] 5/325] 1 - 2 ea PO Q6H PRN #15 tablet 10/28/17 - Allergies Allergies/Adverse Reactions: Allergies Allergy/AdvReac Type Severity Reaction Status Date / Time Penicillins AdvReac Hives Verified 02/21/18 22:28 - Social History Does the pt smoke?: No Smoking Status: Never smoker Does the pt drink ETOH?: No Does the pt have substance abuse?: No - Immunizations Immunizations are current?: Yes - POLST Patient has POLST: Yes PD ED PE NORMAL - Vitals Vital signs reviewed: Yes - General General: Alert and oriented X 3, No acute distress, Well developed/nourished - Cardiac Cardiac: RRR, No murmur - Respiratory Respiratory: No respiratory distress, Clear bilaterally - Abdomen Abdomen: Soft, Non tender - Derm Derm: Normal color, Warm and dry, No rash - Extremities Extremities: No tenderness to palpate, Normal ROM s pain, Other (BLE edema distal to knees. there is bilateral upper medial thigh pitting edema that is nontender, normal color (no erythema) and normal temperature (not hot to touch); no crepitus) Results - Vitals Vitals: Vital Signs - 24 hr 02/21/18 02/22/18 02/22/18 22:20 01:53 02:36 Temperature 36.3 C L Heart Rate 86 75 82 Respiratory 20 20 20 Rate Blood Pressure 104/72 134/117 H 130/98 H O2 Saturation 93 95 Oxygen O2 Source Nasal cannula - EKG (time done) No standard instances Rate: Rate (enter#) (79) Rhythm: NSR [place]: LAD Intervals: Wide QRS, RBBB Ischemia: Normal ST segments, Q waves (II, III, aVF, V3-V6) Compare to prior EKG: Unchanged from prior EKG (02/16/18) Computer interpretation: Disagree with computer (disagree with atrial fibrillation) - Labs Labs: Laboratory Tests 02/22/18 02/22/18 02/22/18 00:12 00:12 00:12 WBC 6.4 RBC 4.77 Hgb 14.0 Hct 43.3 MCV 90.9 MCH 29.4 MCHC 32.3 RDW 15.7 H Plt Count 140 MPV 8.9 Neut # (Auto) 3.9 Lymph # (Auto) 1.1 L [place] # (Auto) 0.9 Eos # (Auto) 0.4 Baso # (Auto) 0.1 Absolute Nucleated RBC 0.00 Nucleated RBC % 0.1 Sodium 140 Potassium 4.3 Chloride 97 L Carbon Dioxide 34 H Anion Gap 9.0 BUN 38 H Creatinine 1.9 H Estimated GFR (MDRD) 34 L Glucose 105 H Calcium 8.4 L Troponin I 0.08 B-Natriuretic Peptide 02/22/18 00:12 WBC RBC Hgb Hct MCV MCH MCHC RDW Plt Count MPV Neut # (Auto) Lymph # (Auto) [place] # (Auto) Eos # (Auto) Baso # (Auto) Absolute Nucleated RBC Nucleated RBC % Sodium Potassium Chloride Carbon Dioxide Anion Gap BUN Creatinine Estimated GFR (MDRD) Glucose Calcium Troponin I B-Natriuretic Peptide 1305 H - Rads (name of study) BLE venous doppler US Radiology: Prelim report reviewed, See rad report PD MEDICAL DECISION MAKING - ED course Complexity details: reviewed old records, reviewed results, re-evaluated patient, considered differential, d/w patient ED course: Patient felt improvement during ED stay while awaiting test results; this was without any ED intervention. The edema is equal bilaterally and is pitting, appears similar to the rest of his BLE edema and is likely a result of the same underlying process. I advised him to follow-up with his doctor, as further testing and/or medication adjustments might be needed. I did not order nor recommend change in his current regimen, as his kidney function tests would likely be affected with further diuretic treatment Departure - Departure Disposition: 01 Home, Self Care Clinical Impression: Peripheral edema Condition: Good Instructions: ED Edema Legs Bilateral Follow-Up: Brad Serrano MD [Primary Care Provider] - Discharge Date/Time: 02/22/18 02:36
[2018-02-22 00:19] LABS: BASOPHILS # (AUTO) 0.1 10^3/uL (0.0-0.1); BASOPHILS % (AUTO) 0.9 %; EOSINOPHILS # (AUTO) 0.4 10^3/uL (0.0-0.7); EOSINOPHILS % (AUTO) 5.5 %; LYMPHOCYTES # (AUTO) 1.1 10^3/uL (1.5-3.5); LYMPHOCYTES % (AUTO) 17.2 %; MEAN CORPUSCULAR HEMOGLOBIN 29.4 pg (27.0-31.0); MEAN CORPUSCULAR HGB CONC 32.3 g/dL (32.0-36.0); MEAN CORPUSCULAR VOLUME 90.9 fL (80.0-94.0); MEAN PLATELET VOLUME 8.9 fL (7.4-11.4); MONOCYTES # (AUTO) 0.9 10^3/uL (0.0-1.0); MONOCYTES % (AUTO) 14.9 %; NEUTROPHILS # (AUTO) 3.9 10^3/uL (1.5-6.6); NEUTROPHILS % (AUTO) 61.5 %; PLT - PLATELET COUNT 140 10^3/uL (130-450); RED BLOOD COUNT 4.77 10^6/uL (4.70-6.10); RED CELL DISTRIBUTION WIDTH 15.7 % (12.0-15.0); WHITE BLOOD COUNT 6.4 x10^3/uL (4.8-10.8)
[2018-02-22 00:28] LABS: CALCIUM 8.4 mg/dL (8.5-10.3); CREATININE 1.9 mg/dL (0.6-1.2)
--- NOTE | 2018-02-22 01:27 | Ultrasound Report ---
Reason: BLE edema Procedure Date: 02/22/2018 Accession Number: [id number] / [id number] Procedure: US - Duplex Ext Veins Bilateral CPT Code: FULL RESULT: EXAM: BILATERAL LOWER EXTREMITY VENOUS ULTRASOUND EXAM DATE: 02/22/2018 12:21 AM. CLINICAL HISTORY: Bilateral lower extremity edema. COMPARISON: 07/09/2014 and 11/24/2010. TECHNIQUE: Real-time sonographic vascular imaging was performed by the balance wheel arm burnisher through the lower extremities utilizing both color-flow and Doppler spectral analysis. Multiple textile designs sales representative static images were saved for review. FINDINGS: Right: Common Femoral Vein (CFV): Normal. CFV-GSV Junction: Normal. Profunda Femoral Vein (PFV): Normal. Femoral Vein (FV) Prox: Normal. Femoral Vein (FV) Mid: Normal. Femoral Vein (FV) Dist: No obvious DVT. Suboptimally seen. Popliteal Vein: Normal. Posterior Tibial Veins: No obvious DVT. Suboptimally seen. Peroneal Veins: Not well seen. Left: Common Femoral Vein (CFV): Normal. CFV-GSV Junction: Normal. Profunda Femoral Vein (PFV): Normal. Femoral Vein (FV) Prox: Normal. Femoral Vein (FV) Mid: Normal. Femoral Vein (FV) Dist: No obvious DVT. Suboptimally seen. Popliteal Vein: Normal. Posterior Tibial Veins: No obvious DVT. Suboptimally seen. Peroneal Veins: Not well seen. Other: Images are degraded due to edema and body habitus. Fluid collection at the anterior right knee measuring 2.5 x 1.0 x 4.5 cm, possibly joint effusion. IMPRESSION: No evidence for deep venous thrombosis bilaterally. RADIA
[2018-02-22 02:36] VITALS: BP 130/98
== END 2018-02-22 02:36 | disposition home or self-care (01) ==
LOC: ED 22:13
DX: R60.0 Localized edema (principal); I45.10 Unspecified right bundle-branch block; I48.91 Unspecified atrial fibrillation; I25.10 Atherosclerotic heart disease of native coronary artery without angina pectoris; I25.2 Old myocardial infarction; E11.9 Type 2 diabetes mellitus without complications; Z79.4 Long term (current) use of insulin; Z79.82 Long term (current) use of aspirin
CPT/HCPCS: 36415; 80048; 83880; 84484; 85025; 93005; 93970; 99283

== ENCOUNTER 2018-02-28 09:43 | Outpatient (CLI) | payer MEDICARE, OTHER ==
[2018-02-28 11:18] LABS: ALBUMIN 3.3 g/dL (3.2-5.5); CALCIUM 8.7 mg/dL (8.5-10.3); TOTAL PROTEIN 6.6 g/dL (6.7-8.2)
== END 2018-02-28 09:44 | disposition home or self-care (01) ==
LOC: LAB 09:43
PROVIDERS: ATTEND Nurse Practitioner Primary Care
DX: Z51.81 Encounter for therapeutic drug level monitoring (principal); I50.9 Heart failure, unspecified; N18.3 Chronic kidney disease, stage 3 (moderate)
CPT/HCPCS: 80053; 83880

== ENCOUNTER 2018-03-07 09:14 | Outpatient (CLI) | payer MEDICARE, OTHER ==
[2018-03-07 09:48] LABS: ALBUMIN 3.3 g/dL (3.2-5.5); BILIRUBIN,TOTAL 0.8 mg/dL (0.2-1.0); CALCIUM 8.6 mg/dL (8.5-10.3); CREATININE 2.2 mg/dL (0.6-1.2); TOTAL PROTEIN 6.5 g/dL (6.7-8.2)
== END 2018-03-07 09:15 | disposition home or self-care (01) ==
LOC: LAB 09:14
PROVIDERS: ATTEND Nurse Practitioner Primary Care
DX: I50.9 Heart failure, unspecified (principal)
CPT/HCPCS: 36415; 80053; 83880

== ENCOUNTER 2018-03-17 10:18 | Outpatient (CLI) | payer MEDICARE, OTHER ==
[2018-03-17 11:24] LABS: ALBUMIN 3.4 g/dL (3.2-5.5); ALBUMIN/GLOBULIN RATIO 1.1 (1.0-2.2); BILIRUBIN,TOTAL 0.8 mg/dL (0.2-1.0); CALCIUM 8.4 mg/dL (8.5-10.3); CREATININE 2.1 mg/dL (0.6-1.2); TOTAL PROTEIN 6.5 g/dL (6.7-8.2)
== END 2018-03-17 10:19 | disposition home or self-care (01) ==
LOC: LAB 10:18
PROVIDERS: ATTEND Nurse Practitioner Primary Care
DX: Z79.899 Other long term (current) drug therapy (principal); I50.9 Heart failure, unspecified; N18.4 Chronic kidney disease, stage 4 (severe)
CPT/HCPCS: 36415; 80053; 83880

== ENCOUNTER 2018-04-05 10:07 | Outpatient (CLI) | payer MEDICARE, OTHER ==
[2018-04-05 10:48] LABS: ALBUMIN 3.3 g/dL (3.2-5.5); BILIRUBIN,TOTAL 0.9 mg/dL (0.2-1.0); CALCIUM 8.9 mg/dL (8.5-10.3); CREATININE 2.8 mg/dL (0.6-1.2); TOTAL PROTEIN 6.6 g/dL (6.7-8.2)
== END 2018-04-05 10:08 | disposition home or self-care (01) ==
LOC: LAB 10:07
PROVIDERS: ATTEND Nurse Practitioner Primary Care
DX: I50.9 Heart failure, unspecified (principal); R06.02 Shortness of breath; N18.4 Chronic kidney disease, stage 4 (severe)
CPT/HCPCS: 36415; 80053; 83880

== ENCOUNTER 2018-04-14 09:09 | Outpatient (CLI) | payer MEDICARE, OTHER ==
[2018-04-14 09:45] LABS: ALBUMIN 3.2 g/dL (3.2-5.5); ALBUMIN/GLOBULIN RATIO 0.9 (1.0-2.2); BILIRUBIN,TOTAL 0.9 mg/dL (0.2-1.0); CALCIUM 8.9 mg/dL (8.5-10.3); CREATININE 2.4 mg/dL (0.6-1.2); TOTAL PROTEIN 6.8 g/dL (6.7-8.2)
== END 2018-04-14 09:10 | disposition home or self-care (01) ==
LOC: LAB 09:09
PROVIDERS: ATTEND Nurse Practitioner Primary Care
DX: I50.9 Heart failure, unspecified (principal); R06.02 Shortness of breath; N18.4 Chronic kidney disease, stage 4 (severe); Z79.899 Other long term (current) drug therapy
CPT/HCPCS: 36415; 80053; 83880

== ENCOUNTER 2018-04-29 11:52 | Outpatient (CLI) | payer MEDICARE, OTHER ==
[2018-04-29 12:32] LABS: CALCIUM 9.6 mg/dL (8.5-10.3); CREATININE 2.4 mg/dL (0.6-1.2); MAGNESIUM 2.4 mg/dL (1.7-2.8)
== END 2018-04-29 11:53 | disposition home or self-care (01) ==
LOC: LAB 11:52
PROVIDERS: ATTEND Family Medicine
DX: I50.9 Heart failure, unspecified (principal); N18.6 End stage renal disease
CPT/HCPCS: 36415; 80048; 83735

== ENCOUNTER 2018-07-12 09:50 | Outpatient (CLI) | payer MEDICARE, OTHER ==
[2018-07-12 10:10] LABS: BASOPHILS # (AUTO) 0.1 10^3/uL (0.0-0.1); EOSINOPHILS # (AUTO) 0.3 10^3/uL (0.0-0.7); EOSINOPHILS % (AUTO) 4.1 %; HGB - HEMOGLOBIN 15.5 g/dL (14.0-18.0); LYMPHOCYTES # (AUTO) 1.1 10^3/uL (1.5-3.5); LYMPHOCYTES % (AUTO) 16.2 %; MEAN CORPUSCULAR HEMOGLOBIN 28.7 pg (27.0-31.0); MEAN CORPUSCULAR HGB CONC 32.3 g/dL (32.0-36.0); MEAN PLATELET VOLUME 9.4 fL (7.4-11.4); MONOCYTES # (AUTO) 0.9 10^3/uL (0.0-1.0); NEUTROPHILS # (AUTO) 4.4 10^3/uL (1.5-6.6); NEUTROPHILS % (AUTO) 64.7 %; PLT - PLATELET COUNT 126 10^3/uL (130-450); RED BLOOD COUNT 5.39 10^6/uL (4.70-6.10); RED CELL DISTRIBUTION WIDTH 17.1 % (12.0-15.0); WHITE BLOOD COUNT 6.8 x10^3/uL (4.8-10.8)
[2018-07-12 10:32] LABS: CALCIUM 8.9 mg/dL (8.5-10.3); CREATININE 2.3 mg/dL (0.6-1.2)
[2018-07-12 10:36] LABS: HB2 TOTAL 17.1 g/dL; HEMOGLOBIN A1C 1.34 g/dL; HEMOGLOBIN A1C % 9.3 % (4.6-6.2)
[2018-07-12 11:32] LABS: THYROID STIMULATING HORMONE 4.77 uIU/mL (0.34-5.60)
[2018-07-12 11:34] LABS: FREE T4 (FREE THYROXINE) 1.03 ng/dL (0.58-1.64)
== END 2018-07-12 09:51 | disposition home or self-care (01) ==
LOC: LAB 09:50
PROVIDERS: ATTEND Family Medicine
DX: J98.4 Other disorders of lung (principal); E11.22 Type 2 diabetes mellitus with diabetic chronic kidney disease; N18.4 Chronic kidney disease, stage 4 (severe); I25.10 Atherosclerotic heart disease of native coronary artery without angina pectoris; I50.9 Heart failure, unspecified
CPT/HCPCS: 36415; 80048; 83036; 84439; 84443; 84481; 85025